=== PATIENT | female | born 2000 | race Caucasian/White ===

== ENCOUNTER 2021-05-11 03:30 | Emergency (ER) | payer MEDICAID, SELFPAY ==
[2021-05-11] VITALS (33 sets, daily range): BP systolic 91–133; BP diastolic 50–69; PULSE 68–114; RESP 14–31; TEMP 36.9–38.4; O2SAT 94–100; BMI 22.8
--- NOTE | 2021-05-11 03:32 | DI.CT.S_ITS ---
PROCEDURE: CT HEAD/BRAIN WO CON INDICATIONS: head injury TECHNIQUE: Noncontrast 4.5 mm thick angled axial sections acquired from the foramen magnum to the vertex, with coronal and sagittal reformats. For radiation dose reduction, the following was used: automated exposure control, adjustment of mA and/or kV according to patient size. COMPARISON: None. FINDINGS: Image quality: Excellent. CSF spaces: Basal cisterns are patent. No extra-axial fluid collections. Ventricles are normal in size and shape. Brain: No midline shift. No intracranial masses or hemorrhage. Moseley-white matter interface is normal. Skull and face: Calvarium and visualized facial bones are intact, without suspicious lesions. Sinuses: Visualized sinuses and mastoids are clear. IMPRESSION: Normal for age, source of current pain after trauma symptoms is not seen. Dictated by: Buster Penn M.D. on 05/11/2021 at 7:48 Approved by: Buster Penn M.D. on 05/11/2021 at 7:48
[2021-05-11 04:02] LABS: Add Manual Diff / Slide Review NO; Basophils Absolute Auto 0 /uL (0-100); Basophils Percent Auto 0.5 % (0-2); Eosinophils Absolute Auto 100 /uL (0-450); Eosinophils Percent Auto 0.9 % (2-4); Hematocrit 39.3 % (36-46); Hemoglobin 13.3 g/dL (12.0-16.0); Lymphocytes Absolute Auto 2000 /uL (1100-4500); Mean Corpuscular HGB Conc 33.9 % (30-36); Mean Corpuscular Volume 97.4 fL (80-100); Monocytes Absolute Auto 600 /uL (0-900); Monocytes Percent Auto 7.3 % (3-14); Neutrophils Absolute Auto 6000 /uL (1500-7000); Neutrophils Percent Auto 68.3 % (50-75); Platelet Count 260 X10^3/uL (150-400); Red Blood Cell Count 4.03 X10^6/uL (4.0-5.2); Red Cell Distribution Width 13.4 % (11.6-14.8); White Blood Cell Count 8.8 X10^3/uL (4.5-11.0)
[2021-05-11 04:11] LABS: UR Morphine/Opiate cutoff 300 Negative (Negative); Ur Creatinine 10 (Normal); Ur Specific Gravity 1.005 (Normal); Urine Amphetamines Negative (Negative); Urine Barbiturates Negative (Negative); Urine Benzodiazepines Negative (Negative); Urine Cocaine Negative (Negative); Urine MDMA Negative (Negative); Urine Methadone Negative (Negative); Urine Methamphetamines Negative (Negative); Urine Oxycodone Negative (Negative); Urine Phencyclidine Negative (Negative); Urine Tetrahydrocannabinol Negative (Negative); Urine Tricyclic Antidepressant Negative (Negative); Urine pH 4 (Normal)
[2021-05-11 04:13] LABS: Acetaminophen < 10 ug/mL (10-30); Alanine Aminotransferase 26 IU/L (<35); Albumin 4.7 g/dL (3.5-5.0); Albumin Globulin Ratio 1.5 (1.0-2.8); Alkaline Phosphatase 65 U/L (38-126); Aspartate Aminotransferase 48 IU/L (14-36); BUN Creatinine Ratio 11.5 (6-22); Bilirubin Total 0.4 mg/dL (0.2-1.3); Blood Urea Nitrogen 7 mg/dL (7-17); Calcium 9.5 mg/dL (8.4-10.2); Carbon Dioxide 17 mmol/L (22-32); Chloride 110 mmol/L (98-107); Estimated Glomerular Filt Rate > 60.0 mL/min (>60); Ethanol (ETOH) 182 mg/dL; Globulin 3.1 g/dL (1.7-4.1); Glucose 106 mg/dL (70-100); HEMOLYSIS < 15 (0-50); Potassium 3.2 mmol/L (3.4-5.1); Salicylate < 1.0 mg/dL (<20); Sodium 142 mmol/L (137-145); Total Protein 7.8 g/dL (6.3-8.2)
--- NOTE | 2021-05-11 04:33 | PC.NURSE ---
pt slamed head against mattress repeatedly
[2021-05-11 04:52] LABS: Bacteria Urine None Seen; RBC Urine None Seen (0-5/HPF); WBC Urine None Seen (0-5/HPF)
[2021-05-11 05:02] LABS: Appearance Urine UA CLEAR; Bilirubin Urine UA NEGATIVE (NEGATIVE); Glucose Urine UA NEGATIVE (Negative); Ketones Urine UA NEGATIVE (NEGATIVE); Leukocyte Esterase Urine UA NEGATIVE (NEGATIVE); Nitrite Urine UA NEGATIVE (Negative); Occult Blood Urine UA TRACE-LYSED (Negative); Protein Urine UA NEGATIVE (Negative); Specific Gravity Urine UA <=1.005 (1.000-1.035); Urobilinogen Urine UA 0.2 E.U./dL (0.2)
[2021-05-11 05:03] LABS: Color Urine UA Straw
[2021-05-11 05:06] LABS: Pregnancy Test Urine Positive (Negative)
[2021-05-11 05:11] LABS: Culture Indicated Urine Cult Not Indicated
--- NOTE | 2021-05-11 05:59 | ED_ITS ---
HPI - Alcohol <Daniel Chavira DO - Last Filed: 05/11/21 17:58> General Chief Complaint: Toxicology Problem Stated Complaint: Drunk/ S.I. Time Seen by Provider: 05/11/21 03:34 Source: patient and EMS Mode of arrival: EMS History of Present Illness HPI narrative: 20-year-old female daily smoker presents by EMS with police escort with a chief complaint of heavy alcohol intoxication and self-harm with suspected suicidal ideation. [place] had [place]riage in has been suicidal and depressed. She is reported to have consumed a significant amount of alcohol and was found hitting her head on a trampoline support structure or a fence. She wa s brought by EMS for evaluation and police filled out I TA paperwork. She contributes little to nothing in the history Related Data Previous Rx's Medication Instructions Recorded amoxicillin 875 mg-potassium 1 tab PO Q12H #20 tab 05/11/21 clavulanate 125 mg tablet (Augmentin) Allergies Allergy/AdvReac Type Severity Reaction Status Date / Time latex Allergy Verified 05/11/21 04:13 Review of Systems <Daniel Chavira DO - Last Filed: 05/11/21 17:58> Review of Systems ROS Unobtainable: Unobtainable due to mental status/LOC Patient History <DO Zach Rivas Last Filed: 05/11/21 17:58> Medical History (Updated 05/11/21 @ 14:18 by Jaime Underwood MD) Fever Missed with demise before 20 completed weeks of gestation Social History marital status: unmarried,single number of children: 0 Smoking Status: Current every day smoker Smoking Status: Current every day smoker tobacco type: vaping Alcohol type: beer and hard liquor Exam <Daniel Chavira DO - Last Filed: 05/11/21 17:58> Narrative Exam Narrative: GENERAL: [20] year old patient appears stated age. Well- developed patient, in mild distress. Slurring words, a ton did, guarding airway, controlling secretions HEAD: Atraumatic. Normocephalic. EYES: Pupils equal round and reactive. Extraocular motions intact. No scleral icterus. No injection or drainage. ENT: Nose without bleeding, purulent drainage. Throat without erythema, tonsillar hypertrophy or exudate. Airway patent. NECK: Trachea midline. Non tender CARDIOVASCULAR: Regular rate and rhythm without murmurs, gallops, or rubs. RESPIRATORY: Clear to auscultation. Breath sounds equal bilaterally. No wheezes, rales, or rhonchi. GASTROINTESTINAL: Abdomen soft, non-tender, nondistended. EXTREMITIES: No edema or joint tenderness. BACK: Nontender without deformity or crepitance. No flank tenderness. NEURO: Moving all 4 extremities s purposely SKIN: No rash or erythema of visible areas Initial Vital Signs Initial Vital Signs: Vital Signs Temperature 98.5 F 05/11/21 03:30 Pulse Rate 103 H 05/11/21 03:30 Respiratory Rate 20 05/11/21 03:30 Blood Pressure 132/69 05/11/21 03:30 Pulse Oximetry 99 05/11/21 03:30 <Oriana Cesar DO - Last Filed: 05/11/21 15:41> Initial Vital Signs Initial Vital Signs: Vital Signs Temperature 98.5 F 05/11/21 03:30 Pulse Rate 103 H 05/11/21 03:30 Respiratory Rate 20 05/11/21 03:30 Blood Pressure 132/69 05/11/21 03:30 Pulse Oximetry 99 05/11/21 03:30 Course <Daniel Chvaira DO - Last Filed: 05/11/21 17:58> Orders Ordered: ED Orders 05/11/21 09:25 US OB <= 14 weeks fetus Stat 05/11/21 13:13 Blood Culture Stat 05/11/21 13:14 Lactate (Lactic Acid) Stat Procalcitonin Stat 05/11/21 13:18 COVID19 -Nasal swab/Pre-Proc Stat Discontinued Medications Acetaminophen (Acetaminophen 325 Mg Tablet) 975 mg PO NOW ONE Stop: 05/11/21 13:01 Last Admin: 05/11/21 13:25 Dose: 975 mg Documented by: TYRA Sodium Chloride (Normal Saline 0.9%) 1,000 mls @ 150 mls/hr IV CONT JAYE Last Admin: 05/11/21 08:41 Dose: Not Given Documented by: TYRA Ampicillin Sodium 2,000 mg/ (Sodium Chloride) 100 mls @ 200 mls/hr IV NOW ONE Stop: 05/11/21 12:58 Last Infusion: 05/11/21 14:00 Dose: 0 mls/hr Documented by: Admin: 05/11/21 13:25 Dose: 200 mls/hr Documented by: TYRA Gentamicin Sulfate 300 mg/ (Sodium Chloride) 107.5 mls @ 107.5 mls/hr IV NOW ONE Stop: 05/11/21 12:58 Last Infusion: 05/11/21 15:05 Dose: 0 mls/hr Documented by: Admin: 05/11/21 14:02 Dose: 107.5 mls/hr Documented by: TYRA Vital Signs Vital signs: Vital Signs - 8 hr 05/11/21 10:00 05/11/21 10:30 05/11/21 11:00 Temperature Pulse Rate 83 82 77 Respiratory Rate 19 18 18 Blood Pressure 108/57 L 110/58 L 102/56 L Pulse Oximetry 97 97 94 05/11/21 11:30 05/11/21 11:52 05/11/21 12:00 Temperature 100.2 F H Pulse Rate 98 H 114 H Respiratory Rate 29 H 26 H Blood Pressure 99/55 L 102/57 L Pulse Oximetry 96 98 05/11/21 12:26 05/11/21 12:27 05/11/21 12:30 Temperature 101.1 F H Pulse Rate 84 81 82 Respiratory Rate 14 15 16 Blood Pressure 104/61 104/61 Pulse Oximetry 98 98 98 05/11/21 13:00 05/11/21 13:30 05/11/21 14:00 Temperature Pulse Rate 87 92 H 91 H Respiratory Rate 17 21 24 Blood Pressure Pulse Oximetry 98 98 99 05/11/21 14:07 05/11/21 14:30 05/11/21 15:00 Temperature Pulse Rate 86 82 82 Respiratory Rate 22 30 H 22 Blood Pressure 112/59 L 113/55 L Pulse Oximetry 99 97 97 05/11/21 15:01 05/11/21 15:40 Temperature 99.6 F Pulse Rate 80 Respiratory Rate 24 Blood Pressure 133/61 Pulse Oximetry 98 <Oriana Cesar DO - Last Filed: 05/11/21 15:41> Orders Ordered: ED Orders 05/11/21 09:25 US OB <= 14 weeks fetus Stat 05/11/21 13:13 Blood Culture Stat 05/11/21 13:14 Lactate (Lactic Acid) Stat Procalcitonin Stat 05/11/21 13:18 COVID19 -Nasal swab/Pre-Proc Stat Discontinued Medications Acetaminophen (Acetaminophen 325 Mg Tablet) 975 mg PO NOW ONE Stop: 05/11/21 13:01 Last Admin: 05/11/21 13:25 Dose: 975 mg Documented by: TYRA Sodium Chloride (Normal Saline 0.9%) 1,000 mls @ 150 mls/hr IV CONT JAYE Last Admin: 05/11/21 08:41 Dose: Not Given Documented by: TYRA Ampicillin Sodium 2,000 mg/ (Sodium Chloride) 100 mls @ 200 mls/hr IV NOW ONE Stop: 05/11/21 12:58 Last Infusion: 05/11/21 14:00 Dose: 0 mls/hr Documented by: Admin: 05/11/21 13:25 Dose: 200 mls/hr Documented by: TYRA Gentamicin Sulfate 300 mg/ (Sodium Chloride) 107.5 mls @ 107.5 mls/hr IV NOW ONE Stop: 05/11/21 12:58 Last Infusion: 05/11/21 15:05 Dose: 0 mls/hr Documented by: Admin: 05/11/21 14:02 Dose: 107.5 mls/hr Documented by: TYRA Vital Signs Vital signs: Vital Signs - 8 hr 05/11/21 10:00 05/11/21 10:30 05/11/21 11:00 Temperature Pulse Rate 83 82 77 Respiratory Rate 19 18 18 Blood Pressure 108/57 L 110/58 L 102/56 L Pulse Oximetry 97 97 94 05/11/21 11:30 05/11/21 11:52 05/11/21 12:00 Temperature 100.2 F H Pulse Rate 98 H 114 H Respiratory Rate 29 H 26 H Blood Pressure 99/55 L 102/57 L Pulse Oximetry 96 98 05/11/21 12:26 05/11/21 12:27 05/11/21 12:30 Temperature 101.1 F H Pulse Rate 84 81 82 Respiratory Rate 14 15 16 Blood Pressure 104/61 104/61 Pulse Oximetry 98 98 98 05/11/21 13:00 05/11/21 13:30 05/11/21 14:00 Temperature Pulse Rate 87 92 H 91 H Respiratory Rate 17 21 24 Blood Pressure Pulse Oximetry 98 98 99 05/11/21 14:07 05/11/21 14:30 05/11/21 15:00 Temperature Pulse Rate 86 82 82 Respiratory Rate 22 30 H 22 Blood Pressure 112/59 L 113/55 L Pulse Oximetry 99 97 97 05/11/21 15:01 05/11/21 15:40 Temperature 99.6 F Pulse Rate 80 Respiratory Rate 24 Blood Pressure 133/61 Pulse Oximetry 98 MDM - Alcohol <Daniel Chavira, DO - Last Filed: 05/11/21 17:58> Lab Data Result diagrams: 05/11/21 03:55 05/11/21 03:55 Labs: Lab Results 05/11/21 05/11/21 05/11/21 Range/Units 03:45 03:45 03:45 WBC (4.5-11.0) X10^3/uL RBC (4.0-5.2) X10^6/uL Hgb (12.0-16.0) g/dL Hct (36-46) % MCV (80-100) fL MCH (26-34) PG MCHC (30-36) % RDW (11.6-14.8) % Plt Count (150-400) X10^3/uL Neut % (Auto) (50-75) % Lymph % (Auto) (25-40) % [place] % (Auto) (3-14) % Eos % (Auto) (2-4) % Baso % (Auto) (0-2) % Neut # (Auto) (1782-9386) /uL Lymph # (Auto) (1516-5230) /uL [place] # (Auto) (0-900) /uL Eos # (Auto) (0-450) /uL Baso # (Auto) (0-100) /uL Sodium (137-145) mmol/L Potassium (3.4-5.1) mmol/L Chloride (98-107) mmol/L Carbon Dioxide (22-32) mmol/L BUN (7-17) mg/dL Creatinine (0.52-1.04) mg/dL Estimated GFR (>60) mL/min BUN/Creatinine Ratio (6-22) Glucose (70-100) mg/dL Lactate (0.7-2.1) mmol/L Calcium (8.4-10.2) mg/dL Total Bilirubin (0.2-1.3) mg/dL AST (14-36) IU/L ALT (<35) IU/L Alkaline Phosphatase (38-126) U/L Total Protein (6.3-8.2) g/dL Albumin (3.5-5.0) g/dL Globulin (1.7-4.1) g/dL Albumin/Globulin Ratio (1.0-2.8) Procalcitonin (<0.5) ng/mL HCG, Quant mIU/mL Urine Color Straw Urine Appearance Clear Urine pH 6.0 (4.5-8.0) Ur Specific Severance <=1.005 (1.000-1.035) Urine Protein Negative (Negative) Urine Glucose (UA) Negative (Negative) g/dL Urine Ketones Negative (NEGATIVE) Urine Occult Blood Trace-lysed (Negative) Urine Nitrate Negative (Negative) Urine Bilirubin Negative (NEGATIVE) Urine Urobilinogen 0.2 (0.2) E.U./dL Ur Leukocyte Esterase Negative (NEGATIVE) Urine RBC None seen (0-5/HPF) Urine WBC None seen (0-5/HPF) Urine Bacteria None seen (None) Ur Culture Indicated? Cult not indicated Urine Test Positive H (Negative) Salicylates (<20) mg/dL U Opiates 300ng/mL cut Negative (Negative) Ur Oxycodone Screen Negative (Negative) Urine Methadone Screen Negative (Negative) Acetaminophen (10-30) ug/mL Ur Barbiturates Screen Negative (Negative) U Tricyclic Antidepress Negative (Negative) Ur Phencyclidine Scrn Negative (Negative) Ur Amphetamines Screen Negative (Negative) U Methamphetamines Scrn Negative (Negative) Ur MDMA Scrn (Ecstasy) Negative (Negative) U Benzodiazepines Scrn Negative (Negative) Urine Cocaine Screen Negative (Negative) U Marijuana (THC) Screen Negative (Negative) Ethyl Alcohol ( - 10) mg/dL Ur Chlamydia DNA (PCR) SARS-CoV-2 (PCR) (Negative) N gonorrhoeae DNA (PCR) Blood Type 05/11/21 05/11/21 05/11/21 Range/Units 03:45 03:55 03:55 WBC 8.8 (4.5-11.0) X10^3/uL RBC 4.03 (4.0-5.2) X10^6/uL Hgb 13.3 (12.0-16.0) g/dL Hct 39.3 (36-46) % MCV 97.4 (80-100) fL MCH 33.0 (26-34) PG MCHC 33.9 (30-36) % RDW 13.4 (11.6-14.8) % Plt Count 260 (150-400) X10^3/uL Neut % (Auto) 68.3 (50-75) % Lymph % (Auto) 23.0 L (25-40) % [place] % (Auto) 7.3 (3-14) % Eos % (Auto) 0.9 L (2-4) % Baso % (Auto) 0.5 (0-2) % Neut # (Auto) 6000 (5735-7177) /uL Lymph # (Auto) 2000 (7632-8874) /uL [place] # (Auto) 600 (0-900) /uL Eos # (Auto) 100 (0-450) /uL Baso # (Auto) 0 (0-100) /uL Sodium 142 (137-145) mmol/L Potassium 3.2 L (3.4-5.1) mmol/L Chloride 110 H (98-107) mmol/L Carbon Dioxide 17 L (22-32) mmol/L BUN 7 (7-17) mg/dL Creatinine 0.61 (0.52-1.04) mg/dL Estimated GFR > 60.0 (>60) mL/min BUN/Creatinine Ratio 11.5 (6-22) Glucose 106 H (70-100) mg/dL Lactate (0.7-2.1) mmol/L Calcium 9.5 (8.4-10.2) mg/dL Total Bilirubin 0.4 (0.2-1.3) mg/dL AST 48 H (14-36) IU/L ALT 26 (<35) IU/L Alkaline Phosphatase 65 (38-126) U/L Total Protein 7.8 (6.3-8.2) g/dL Albumin 4.7 (3.5-5.0) g/dL Globulin 3.1 (1.7-4.1) g/dL Albumin/Globulin Ratio 1.5 (1.0-2.8) Procalcitonin (<0.5) ng/mL HCG, Quant mIU/mL Urine Color Urine Appearance Urine pH (4.5-8.0) Ur Specific Severance (1.000-1.035) Urine Protein (Negative) Urine Glucose (UA) (Negative) g/dL Urine Ketones (NEGATIVE) Urine Occult Blood (Negative) Urine Nitrate (Negative) Urine Bilirubin (NEGATIVE) Urine Urobilinogen (0.2) E.U./dL Ur Leukocyte Esterase (NEGATIVE) Urine RBC (0-5/HPF) Urine WBC (0-5/HPF) Urine Bacteria (None) Ur Culture Indicated? Urine Test (Negative) Salicylates < 1.0 (<20) mg/dL U Opiates 300ng/mL cut (Negative) Ur Oxycodone Screen (Negative) Urine Methadone Screen (Negative) Acetaminophen < 10 L (10-30) ug/mL Ur Barbiturates Screen (Negative) U Tricyclic Antidepress (Negative) Ur Phencyclidine Scrn (Negative) Ur Amphetamines Screen (Negative) U Methamphetamines Scrn (Negative) Ur MDMA Scrn (Ecstasy) (Negative) U Benzodiazepines Scrn (Negative) Urine Cocaine Screen (Negative) U Marijuana (THC) Screen (Negative) Ethyl Alcohol 182 H ( - 10) mg/dL Ur Chlamydia DNA (PCR) Not detected SARS-CoV-2 (PCR) (Negative) N gonorrhoeae DNA (PCR) Not detected Blood Type 05/11/21 05/11/21 05/11/21 Range/Units 03:55 03:55 13:14 WBC (4.5-11.0) X10^3/uL RBC (4.0-5.2) X10^6/uL Hgb (12.0-16.0) g/dL Hct (36-46) % MCV (80-100) fL MCH (26-34) PG MCHC (30-36) % RDW (11.6-14.8) % Plt Count (150-400) X10^3/uL Neut % (Auto) (50-75) % Lymph % (Auto) (25-40) % [place] % (Auto) (3-14) % Eos % (Auto) (2-4) % Baso % (Auto) (0-2) % Neut # (Auto) (7878-4455) /uL Lymph # (Auto) (1139-5882) /uL [place] # (Auto) (0-900) /uL Eos # (Auto) (0-450) /uL Baso # (Auto) (0-100) /uL Sodium (137-145) mmol/L Potassium (3.4-5.1) mmol/L Chloride (98-107) mmol/L Carbon Dioxide (22-32) mmol/L BUN (7-17) mg/dL Creatinine (0.52-1.04) mg/dL Estimated GFR (>60) mL/min BUN/Creatinine Ratio (6-22) Glucose (70-100) mg/dL Lactate 1.1 (0.7-2.1) mmol/L Calcium (8.4-10.2) mg/dL Total Bilirubin (0.2-1.3) mg/dL AST (14-36) IU/L ALT (<35) IU/L Alkaline Phosphatase (38-126) U/L Total Protein (6.3-8.2) g/dL Albumin (3.5-5.0) g/dL Globulin (1.7-4.1) g/dL Albumin/Globulin Ratio (1.0-2.8) Procalcitonin (<0.5) ng/mL HCG, Quant 353.5 mIU/mL Urine Color Urine Appearance Urine pH (4.5-8.0) Ur Specific Severance (1.000-1.035) Urine Protein (Negative) Urine Glucose (UA) (Negative) g/dL Urine Ketones (NEGATIVE) Urine Occult Blood (Negative) Urine Nitrate (Negative) Urine Bilirubin (NEGATIVE) Urine Urobilinogen (0.2) E.U./dL Ur Leukocyte Esterase (NEGATIVE) Urine RBC (0-5/HPF) Urine WBC (0-5/HPF) Urine Bacteria (None) Ur Culture Indicated? Urine Test (Negative) Salicylates (<20) mg/dL U Opiates 300ng/mL cut (Negative) Ur Oxycodone Screen (Negative) Urine Methadone Screen (Negative) Acetaminophen (10-30) ug/mL Ur Barbiturates Screen (Negative) U Tricyclic Antidepress (Negative) Ur Phencyclidine Scrn (Negative) Ur Amphetamines Screen (Negative) U Methamphetamines Scrn (Negative) Ur MDMA Scrn (Ecstasy) (Negative) U Benzodiazepines Scrn (Negative) Urine Cocaine Screen (Negative) U Marijuana (THC) Screen (Negative) Ethyl Alcohol ( - 10) mg/dL Ur Chlamydia DNA (PCR) SARS-CoV-2 (PCR) (Negative) N gonorrhoeae DNA (PCR) Blood Type O Positive 05/11/21 05/11/21 Range/Units 13:14 13:18 WBC (4.5-11.0) X10^3/uL RBC (4.0-5.2) X10^6/uL Hgb (12.0-16.0) g/dL Hct (36-46) % MCV (80-100) fL MCH (26-34) PG MCHC (30-36) % RDW (11.6-14.8) % Plt Count (150-400) X10^3/uL Neut % (Auto) (50-75) % Lymph % (Auto) (25-40) % [place] % (Auto) (3-14) % Eos % (Auto) (2-4) % Baso % (Auto) (0-2) % Neut # (Auto) (7956-6036) /uL Lymph # (Auto) (3185-7924) /uL [place] # (Auto) (0-900) /uL Eos # (Auto) (0-450) /uL Baso # (Auto) (0-100) /uL Sodium (137-145) mmol/L Potassium (3.4-5.1) mmol/L Chloride (98-107) mmol/L Carbon Dioxide (22-32) mmol/L BUN (7-17) mg/dL Creatinine (0.52-1.04) mg/dL Estimated GFR (>60) mL/min BUN/Creatinine Ratio (6-22) Glucose (70-100) mg/dL Lactate (0.7-2.1) mmol/L Calcium (8.4-10.2) mg/dL Total Bilirubin (0.2-1.3) mg/dL AST (14-36) IU/L ALT (<35) IU/L Alkaline Phosphatase (38-126) U/L Total Protein (6.3-8.2) g/dL Albumin (3.5-5.0) g/dL Globulin (1.7-4.1) g/dL Albumin/Globulin Ratio (1.0-2.8) Procalcitonin 0.04 (<0.5) ng/mL HCG, Quant mIU/mL Urine Color Urine Appearance Urine pH (4.5-8.0) Ur Specific Severance (1.000-1.035) Urine Protein (Negative) Urine Glucose (UA) (Negative) g/dL Urine Ketones (NEGATIVE) Urine Occult Blood (Negative) Urine Nitrate (Negative) Urine Bilirubin (NEGATIVE) Urine Urobilinogen (0.2) E.U./dL Ur Leukocyte Esterase (NEGATIVE) Urine RBC (0-5/HPF) Urine WBC (0-5/HPF) Urine Bacteria (None) Ur Culture Indicated? Urine Test (Negative) Salicylates (<20) mg/dL U Opiates 300ng/mL cut (Negative) Ur Oxycodone Screen (Negative) Urine Methadone Screen (Negative) Acetaminophen (10-30) ug/mL Ur Barbiturates Screen (Negative) U Tricyclic Antidepress (Negative) Ur Phencyclidine Scrn (Negative) Ur Amphetamines Screen (Negative) U Methamphetamines Scrn (Negative) Ur MDMA Scrn (Ecstasy) (Negative) U Benzodiazepines Scrn (Negative) Urine Cocaine Screen (Negative) U Marijuana (THC) Screen (Negative) Ethyl Alcohol ( - 10) mg/dL Ur Chlamydia DNA (PCR) SARS-CoV-2 (PCR) Negative (Negative) N gonorrhoeae DNA (PCR) Blood Type <Oriana Cesar, DO - Last Filed: 05/11/21 15:41> Lab Data Labs: Lab Results 05/11/21 05/11/21 05/11/21 Range/Units 03:45 03:45 03:45 WBC (4.5-11.0) X10^3/uL RBC (4.0-5.2) X10^6/uL Hgb (12.0-16.0) g/dL Hct (36-46) % MCV (80-100) fL MCH (26-34) PG MCHC (30-36) % RDW (11.6-14.8) % Plt Count (150-400) X10^3/uL Neut % (Auto) (50-75) % Lymph % (Auto) (25-40) % [place] % (Auto) (3-14) % Eos % (Auto) (2-4) % Baso % (Auto) (0-2) % Neut # (Auto) (0724-4969) /uL Lymph # (Auto) (7729-0910) /uL [place] # (Auto) (0-900) /uL Eos # (Auto) (0-450) /uL Baso # (Auto) (0-100) /uL Sodium (137-145) mmol/L Potassium (3.4-5.1) mmol/L Chloride (98-107) mmol/L Carbon Dioxide (22-32) mmol/L BUN (7-17) mg/dL Creatinine (0.52-1.04) mg/dL Estimated GFR (>60) mL/min BUN/Creatinine Ratio (6-22) Glucose (70-100) mg/dL Lactate (0.7-2.1) mmol/L Calcium (8.4-10.2) mg/dL Total Bilirubin (0.2-1.3) mg/dL AST (14-36) IU/L ALT (<35) IU/L Alkaline Phosphatase (38-126) U/L Total Protein (6.3-8.2) g/dL Albumin (3.5-5.0) g/dL Globulin (1.7-4.1) g/dL Albumin/Globulin Ratio (1.0-2.8) Procalcitonin (<0.5) ng/mL HCG, Quant mIU/mL Urine Color Straw Urine Appearance Clear Urine pH 6.0 (4.5-8.0) Ur Specific Severance <=1.005 (1.000-1.035) Urine Protein Negative (Negative) Urine Glucose (UA) Negative (Negative) g/dL Urine Ketones Negative (NEGATIVE) Urine Occult Blood Trace-lysed (Negative) Urine Nitrate Negative (Negative) Urine Bilirubin Negative (NEGATIVE) Urine Urobilinogen 0.2 (0.2) E.U./dL Ur Leukocyte Esterase Negative (NEGATIVE) Urine RBC None seen (0-5/HPF) Urine WBC None seen (0-5/HPF) Urine Bacteria None seen (None) Ur Culture Indicated? Cult not indicated Urine Test Positive H (Negative) Salicylates (<20) mg/dL U Opiates 300ng/mL cut Negative (Negative) Ur Oxycodone Screen Negative (Negative) Urine Methadone Screen Negative (Negative) Acetaminophen (10-30) ug/mL Ur Barbiturates Screen Negative (Negative) U Tricyclic Antidepress Negative (Negative) Ur Phencyclidine Scrn Negative (Negative) Ur Amphetamines Screen Negative (Negative) U Methamphetamines Scrn Negative (Negative) Ur MDMA Scrn (Ecstasy) Negative (Negative) U Benzodiazepines Scrn Negative (Negative) Urine Cocaine Screen Negative (Negative) U Marijuana (THC) Screen Negative (Negative) Ethyl Alcohol ( - 10) mg/dL Ur Chlamydia DNA (PCR) SARS-CoV-2 (PCR) (Negative) N gonorrhoeae DNA (PCR) Blood Type 05/11/21 05/11/21 05/11/21 Range/Units 03:45 03:55 03:55 WBC 8.8 (4.5-11.0) X10^3/uL RBC 4.03 (4.0-5.2) X10^6/uL Hgb 13.3 (12.0-16.0) g/dL Hct 39.3 (36-46) % MCV 97.4 (80-100) fL MCH 33.0 (26-34) PG MCHC 33.9 (30-36) % RDW 13.4 (11.6-14.8) % Plt Count 260 (150-400) X10^3/uL Neut % (Auto) 68.3 (50-75) % Lymph % (Auto) 23.0 L (25-40) % [place] % (Auto) 7.3 (3-14) % Eos % (Auto) 0.9 L (2-4) % Baso % (Auto) 0.5 (0-2) % Neut # (Auto) 6000 (4630-5472) /uL Lymph # (Auto) 2000 (3889-1905) /uL [place] # (Auto) 600 (0-900) /uL Eos # (Auto) 100 (0-450) /uL Baso # (Auto) 0 (0-100) /uL Sodium 142 (137-145) mmol/L Potassium 3.2 L (3.4-5.1) mmol/L Chloride 110 H (98-107) mmol/L Carbon Dioxide 17 L (22-32) mmol/L BUN 7 (7-17) mg/dL Creatinine 0.61 (0.52-1.04) mg/dL Estimated GFR > 60.0 (>60) mL/min BUN/Creatinine Ratio 11.5 (6-22) Glucose 106 H (70-100) mg/dL Lactate (0.7-2.1) mmol/L Calcium 9.5 (8.4-10.2) mg/dL Total Bilirubin 0.4 (0.2-1.3) mg/dL AST 48 H (14-36) IU/L ALT 26 (<35) IU/L Alkaline Phosphatase 65 (38-126) U/L Total Protein 7.8 (6.3-8.2) g/dL Albumin 4.7 (3.5-5.0) g/dL Globulin 3.1 (1.7-4.1) g/dL Albumin/Globulin Ratio 1.5 (1.0-2.8) Procalcitonin (<0.5) ng/mL HCG, Quant mIU/mL Urine Color Urine Appearance Urine pH (4.5-8.0) Ur Specific Severance (1.000-1.035) Urine Protein (Negative) Urine Glucose (UA) (Negative) g/dL Urine Ketones (NEGATIVE) Urine Occult Blood (Negative) Urine Nitrate (Negative) Urine Bilirubin (NEGATIVE) Urine Urobilinogen (0.2) E.U./dL Ur Leukocyte Esterase (NEGATIVE) Urine RBC (0-5/HPF) Urine WBC (0-5/HPF) Urine Bacteria (None) Ur Culture Indicated? Urine Test (Negative) Salicylates < 1.0 (<20) mg/dL U Opiates 300ng/mL cut (Negative) Ur Oxycodone Screen (Negative) Urine Methadone Screen (Negative) Acetaminophen < 10 L (10-30) ug/mL Ur Barbiturates Screen (Negative) U Tricyclic Antidepress (Negative) Ur Phencyclidine Scrn (Negative) Ur Amphetamines Screen (Negative) U Methamphetamines Scrn (Negative) Ur MDMA Scrn (Ecstasy) (Negative) U Benzodiazepines Scrn (Negative) Urine Cocaine Screen (Negative) U Marijuana (THC) Screen (Negative) Ethyl Alcohol 182 H ( - 10) mg/dL Ur Chlamydia DNA (PCR) Not detected SARS-CoV-2 (PCR) (Negative) N gonorrhoeae DNA (PCR) Not detected Blood Type 05/11/21 05/11/21 05/11/21 Range/Units 03:55 03:55 13:14 WBC (4.5-11.0) X10^3/uL RBC (4.0-5.2) X10^6/uL Hgb (12.0-16.0) g/dL Hct (36-46) % MCV (80-100) fL MCH (26-34) PG MCHC (30-36) % RDW (11.6-14.8) % Plt Count (150-400) X10^3/uL Neut % (Auto) (50-75) % Lymph % (Auto) (25-40) % [place] % (Auto) (3-14) % Eos % (Auto) (2-4) % Baso % (Auto) (0-2) % Neut # (Auto) (3117-8951) /uL Lymph # (Auto) (9213-2299) /uL [place] # (Auto) (0-900) /uL Eos # (Auto) (0-450) /uL Baso # (Auto) (0-100) /uL Sodium (137-145) mmol/L Potassium (3.4-5.1) mmol/L Chloride (98-107) mmol/L Carbon Dioxide (22-32) mmol/L BUN (7-17) mg/dL Creatinine (0.52-1.04) mg/dL Estimated GFR (>60) mL/min BUN/Creatinine Ratio (6-22) Glucose (70-100) mg/dL Lactate 1.1 (0.7-2.1) mmol/L Calcium (8.4-10.2) mg/dL Total Bilirubin (0.2-1.3) mg/dL AST (14-36) IU/L ALT (<35) IU/L Alkaline Phosphatase (38-126) U/L Total Protein (6.3-8.2) g/dL Albumin (3.5-5.0) g/dL Globulin (1.7-4.1) g/dL Albumin/Globulin Ratio (1.0-2.8) Procalcitonin (<0.5) ng/mL HCG, Quant 353.5 mIU/mL Urine Color Urine Appearance Urine pH (4.5-8.0) Ur Specific Severance (1.000-1.035) Urine Protein (Negative) Urine Glucose (UA) (Negative) g/dL Urine Ketones (NEGATIVE) Urine Occult Blood (Negative) Urine Nitrate (Negative) Urine Bilirubin (NEGATIVE) Urine Urobilinogen (0.2) E.U./dL Ur Leukocyte Esterase (NEGATIVE) Urine RBC (0-5/HPF) Urine WBC (0-5/HPF) Urine Bacteria (None) Ur Culture Indicated? Urine Test (Negative) Salicylates (<20) mg/dL U Opiates 300ng/mL cut (Negative) Ur Oxycodone Screen (Negative) Urine Methadone Screen (Negative) Acetaminophen (10-30) ug/mL Ur Barbiturates Screen (Negative) U Tricyclic Antidepress (Negative) Ur Phencyclidine Scrn (Negative) Ur Amphetamines Screen (Negative) U Methamphetamines Scrn (Negative) Ur MDMA Scrn (Ecstasy) (Negative) U Benzodiazepines Scrn (Negative) Urine Cocaine Screen (Negative) U Marijuana (THC) Screen (Negative) Ethyl Alcohol ( - 10) mg/dL Ur Chlamydia DNA (PCR) SARS-CoV-2 (PCR) (Negative) N gonorrhoeae DNA (PCR) Blood Type O Positive 05/11/21 05/11/21 Range/Units 13:14 13:18 WBC (4.5-11.0) X10^3/uL RBC (4.0-5.2) X10^6/uL Hgb (12.0-16.0) g/dL Hct (36-46) % MCV (80-100) fL MCH (26-34) PG MCHC (30-36) % RDW (11.6-14.8) % Plt Count (150-400) X10^3/uL Neut % (Auto) (50-75) % Lymph % (Auto) (25-40) % [place] % (Auto) (3-14) % Eos % (Auto) (2-4) % Baso % (Auto) (0-2) % Neut # (Auto) (0153-4656) /uL Lymph # (Auto) (9698-2204) /uL [place] # (Auto) (0-900) /uL Eos # (Auto) (0-450) /uL Baso # (Auto) (0-100) /uL Sodium (137-145) mmol/L Potassium (3.4-5.1) mmol/L Chloride (98-107) mmol/L Carbon Dioxide (22-32) mmol/L BUN (7-17) mg/dL Creatinine (0.52-1.04) mg/dL Estimated GFR (>60) mL/min BUN/Creatinine Ratio (6-22) Glucose (70-100) mg/dL Lactate (0.7-2.1) mmol/L Calcium (8.4-10.2) mg/dL Total Bilirubin (0.2-1.3) mg/dL AST (14-36) IU/L ALT (<35) IU/L Alkaline Phosphatase (38-126) U/L Total Protein (6.3-8.2) g/dL Albumin (3.5-5.0) g/dL Globulin (1.7-4.1) g/dL Albumin/Globulin Ratio (1.0-2.8) Procalcitonin 0.04 (<0.5) ng/mL HCG, Quant mIU/mL Urine Color Urine Appearance Urine pH (4.5-8.0) Ur Specific Severance (1.000-1.035) Urine Protein (Negative) Urine Glucose (UA) (Negative) g/dL Urine Ketones (NEGATIVE) Urine Occult Blood (Negative) Urine Nitrate (Negative) Urine Bilirubin (NEGATIVE) Urine Urobilinogen (0.2) E.U./dL Ur Leukocyte Esterase (NEGATIVE) Urine RBC (0-5/HPF) Urine WBC (0-5/HPF) Urine Bacteria (None) Ur Culture Indicated? Urine Test (Negative) Salicylates (<20) mg/dL U Opiates 300ng/mL cut (Negative) Ur Oxycodone Screen (Negative) Urine Methadone Screen (Negative) Acetaminophen (10-30) ug/mL Ur Barbiturates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
--- NOTE | 2021-05-11 07:10 | PC.NURSE ---
Patient starting to wake up
--- NOTE | 2021-05-11 07:21 | PC.NURSE ---
CT arrived to take patient for scan. Escorted with patient to ensure safety. Patient did well and followed all instructions. Returned to room without incident.
[2021-05-11 07:59] LABS: HCG Quantitative /Beta subunit 353.5 mIU/mL
--- NOTE | 2021-05-11 08:34 | PC.NURSE ---
Patient is finishing up eating breakfast
--- NOTE | 2021-05-11 08:46 | PC.NURSE ---
Patient on the phone with her mother
--- NOTE | 2021-05-11 09:01 | PC.NURSE ---
Patient still on the phone with mother
--- NOTE | 2021-05-11 09:17 | PC.NURSE ---
Patient is still on the phone with her mother
--- NOTE | 2021-05-11 09:19 | PC.NURSE ---
Doctor is in with patient
--- NOTE | 2021-05-11 09:25 | DI.US.S_ITS ---
PROCEDURE: US OB <= 14 WEEKS FETUS INDICATIONS: INCOMPLETE MISCARRIAGE OUTSIDE/PRIOR DATING DATA: Last menstrual period (LMP): 01/09/2021. LMP-based estimated date of delivery (HERMINIA): 10/16/2021. First dating scan (date and location): 05/11/2021, [facility]. Estimated date of delivery (HERMINIA) from first dating scan: 12/05/2021. TECHNIQUE: Real-time scanning was performed of the fetus and maternal pelvic organs, with image documentation. Endovaginal scanning was also performed to better visualize the fetus and maternal ovaries. COMPARISON: None. FINDINGS: Embryo: The crown-rump length is 3.3 cm, which corresponds to an estimated gestational age of 10 weeks 2 days. No yolk sac is seen. Heart rate: There is no cardiac activity, despite multiple attempts. Measurement variability in dating: +/- 4 weeks by LMP, +/- 7 days by mean sac diameter (use before 6 weeks gestation if crown-rump length not able to be measured), +/- 5 days by crown-rump length (up to 8 weeks 6 days gestation), +/- 7 days by crown-rump length (up to 13 weeks 6 days gestation). Maternal organs: Ovaries are unremarkable. The uterus is prominent and heterogeneous, measuring 11.7 x 9.9 x 8.3 cm. IMPRESSION: demise, with no cardiac activity and a greater than 1 month discrepancy between the estimated gestational age based upon these images and the estimated gestational age based upon the given date of the last menstrual period. Dictated by: Connor Winston M.D. on 05/11/2021 at 12:03 Approved by: Connor Winston M.D. on 05/11/2021 at 12:05
--- NOTE | 2021-05-11 09:26 | PC.NURSE ---
Doctor has left the room Patient is on the phone
--- NOTE | 2021-05-11 09:50 | PC.NURSE ---
Patient ate half of Banana and a bite of breakfast sandwich, 350mL of water
--- NOTE | 2021-05-11 11:24 | PC.NURSE ---
Patient is sleeping
--- NOTE | 2021-05-11 11:32 | PC.NURSE ---
Patient is awake
--- NOTE | 2021-05-11 11:52 | PC.NURSE ---
US is in with patient
--- NOTE | 2021-05-11 12:06 | PC.NURSE ---
Patient up to the Bathroom to void, US still in with patient
--- NOTE | 2021-05-11 12:16 | PC.NURSE ---
US still in with patient
--- NOTE | 2021-05-11 12:45 | PC.NURSE ---
Patient is still eating lunch
--- NOTE | 2021-05-11 13:01 | PC.NURSE ---
Patient finished eating lunch, Doctor spoke with patient
[2021-05-11] MEDS: AMPICILLIN 2,000 MG in SODIUM CHLORIDE 0.9% 100 ML 200 ML IV (13:25)
[2021-05-11] MEDS: ACETAMINOPHEN 325 MG TABLET 975 MG PO (13:25)
--- NOTE | 2021-05-11 13:35 | PC.NURSE ---
Doctor(OIL EXPERT) in with the patient
[2021-05-11 13:41] LABS: COVID19 -Nasal RAPID Negative (Negative)
[2021-05-11 13:43] LABS: Lactate (Lactic Acid) 1.1 mmol/L (0.7-2.1)
--- NOTE | 2021-05-11 13:46 | PC.NURSE ---
DYE BLENDER Doctor done, BULL FLOAT FINISHER is in with patient now
--- NOTE | 2021-05-11 13:59 | P.CONS_ITS ---
History of Present Illness Consult details Date Patient Seen: 05/11/21 Time Patient Seen: 13:35 Chief complaint: Drunk/ S.I. Reason for consult: Missed , Fever Requesting provider: Oriana Cesar Narrative: 20-year-old female daily smoker presents by EMS with police escort with a chief complaint of heavy alcohol intoxication and self-harm with suspected suicidal ideation. [place] recently had a miscarriage in has been suicidal and depre ssed. She is reported to have consumed a significant amount of alcohol and was found hitting her head on a trampoline support structure or a fence. She was brought by EMS for evaluation and police filled out I TA paperwork. She initially contributed little to nothing in the history. Upon further questioning once sober, the patient states that her LMP was 01/09/2021 and that she is with her current EGA of 16 weeks 6 days gestation based on a first- trimester ultrasound. She further states however that approximately 4 weeks ago she had an ultrasound which showed demise and she has not had any evacuation of this missed . She denies any bleeding, cramping, or leakage of fluid per vagina. She also denies any increasing pelvic or abdominal pain but her temperature orally is 101.0?. BT is pending at the time of this note. Pelvic ultrasound today shows: FINDINGS: Embryo: The crown-rump length is 3.3 cm, which corresponds to an estimated gestational age of 10 weeks 2 days. No yolk sac is seen. Heart rate: There is no cardiac activity, despite multiple attempts. Measurement variability in dating: +/- 4 weeks by LMP, +/- 7 days by mean sac diameter (use before 6 weeks gestation if crown-rump length not able to be measured), +/- 5 days by crown-rump length (up to 8 weeks 6 days gestation), +/- 7 days by crown-rump length (up to 13 weeks 6 days gestation). Maternal organs: Ovaries are unremarkable. The uterus is prominent and heterogeneous, measuring 11.7 x 9.9 x 8.3 cm. IMPRESSION: demise, with no cardiac activity and a greater than 1 month discrepancy between the estimated gestational age based upon these images and the estimated gestational age based upon the given date of the last menstrual period. Meds Home Medications and Allergies Allergies Allergy/AdvReac Type Severity Reaction Status Date / Time latex Allergy Verified 05/11/21 04:13 Review of Systems Review of Systems ROS: Yes All systems reviewed with the patient and are negative except as otherwise documented Exam Vital Signs (past 8 hours): - 05/11/21 08:15 05/11/21 11:52 05/11/21 12:26 Temperature 100.0 F H 100.2 F H 101.1 F H Pulse Rate 81 84 Respiratory Rate 16 14 Blood Pressure 103/57 L 104/61 Pulse Oximetry 99 98 Oxygen Delivery Method Room Air Const General: cooperative Nutritional Appearance: average body habitus Orientation: oriented x3 HENMT Head: normal to inspection Ears: hearing grossly normal bilaterally Face and sinus: face symmetric Eyes Conjunctivae: conjunctivae normal Sclera: sclerae normal Neck Neck: normal visual inspection Resp Effort & Inspection: normal respiratory effort, able to speak in complete sentences and other Auscultation: other (Declined) Cardio Rhythm: other (Exam declined) GI Inspection: other (Exam declined) General: other (Exam declined) Objective Labs Result Diagrams: 05/11/21 03:55 05/11/21 03:55 Labs: Laboratory Results - last 24 hr 05/11/21 05/11/21 05/11/21 03:45 03:45 03:45 WBC RBC Hgb Hct MCV MCH MCHC RDW Plt Count Neut % (Auto) Lymph % (Auto) [place] % (Auto) Eos % (Auto) Baso % (Auto) Neut # (Auto) Lymph # (Auto) [place] # (Auto) Eos # (Auto) Baso # (Auto) Sodium Potassium Chloride Carbon Dioxide BUN Creatinine Estimated GFR BUN/Creatinine Ratio Glucose Lactate Calcium Total Bilirubin AST ALT Alkaline Phosphatase Total Protein Albumin Globulin Albumin/Globulin Ratio HCG, Quant Urine Color Straw Urine Appearance Clear Urine pH 6.0 Ur Specific [place] <=1.005 Urine Protein Negative Urine Glucose (UA) Negative Urine Ketones Negative Urine Occult Blood Trace-lysed Urine Nitrate Negative Urine Bilirubin Negative Urine Urobilinogen 0.2 Ur Leukocyte Esterase Negative Urine RBC None seen Urine WBC None seen Urine Bacteria None seen Ur Culture Indicated? Cult not indicated Urine Test Positive H Salicylates U Opiates 300ng/mL cut Negative Ur Oxycodone Screen Negative Urine Methadone Screen Negative Acetaminophen Ur Barbiturates Screen Negative U Tricyclic Antidepress Negative Ur Phencyclidine Scrn Negative Ur Amphetamines Screen Negative U Methamphetamines Scrn Negative Ur MDMA Scrn (Ecstasy) Negative U Benzodiazepines Scrn Negative Urine Cocaine Screen Negative U Marijuana (THC) Screen Negative Ethyl Alcohol SARS-CoV-2 (PCR) 05/11/21 05/11/21 05/11/21 03:55 03:55 03:55 WBC 8.8 RBC 4.03 Hgb 13.3 Hct 39.3 MCV 97.4 MCH 33.0 MCHC 33.9 RDW 13.4 Plt Count 260 Neut % (Auto) 68.3 Lymph % (Auto) 23.[address] % (Auto) 7.3 Eos % (Auto) 0.9 L Baso % (Auto) 0.5 Neut # (Auto) 6000 Lymph # (Auto) 2000 [place] # (Auto) 600 Eos # (Auto) 100 Baso # (Auto) 0 Sodium 142 Potassium 3.2 L Chloride 110 H Carbon Dioxide 17 L BUN 7 Creatinine 0.61 Estimated GFR > 60.0 BUN/Creatinine Ratio 11.5 Glucose 106 H Lactate Calcium 9.5 Total Bilirubin 0.4 AST 48 H ALT 26 Alkaline Phosphatase 65 Total Protein 7.8 Albumin 4.7 Globulin 3.1 Albumin/Globulin Ratio 1.5 HCG, Quant 353.5 Urine Color Urine Appearance Urine pH Ur Specific [place] Urine Protein Urine Glucose (UA) Urine Ketones Urine Occult Blood Urine Nitrate Urine Bilirubin Urine Urobilinogen Ur Leukocyte Esterase Urine RBC Urine WBC Urine Bacteria Ur Culture Indicated? Urine Test Salicylates < 1.0 U Opiates 300ng/mL cut Ur Oxycodone Screen Urine Methadone Screen Acetaminophen < 10 L Ur Barbiturates Screen U Tricyclic Antidepress Ur Phencyclidine Scrn Ur Amphetamines Screen U Methamphetamines Scrn Ur MDMA Scrn (Ecstasy) U Benzodiazepines Scrn Urine Cocaine Screen U Marijuana (THC) Screen Ethyl Alcohol 182 H SARS-CoV-2 (PCR) 05/11/21 05/11/21 13:14 13:18 WBC RBC Hgb Hct MCV MCH MCHC RDW Plt Count Neut % (Auto) Lymph % (Auto) [place] % (Auto) Eos % (Auto) Baso % (Auto) Neut # (Auto) Lymph # (Auto) [place] # (Auto) Eos # (Auto) Baso # (Auto) Sodium Potassium Chloride Carbon Dioxide BUN Creatinine Estimated GFR BUN/Creatinine Ratio Glucose Lactate 1.1 Calcium Total Bilirubin AST ALT Alkaline Phosphatase Total Protein Albumin Globulin Albumin/Globulin Ratio HCG, Quant Urine Color Urine Appearance Urine pH Ur Specific [place] Urine Protein Urine Glucose (UA) Urine Ketones Urine Occult Blood Urine Nitrate Urine Bilirubin Urine Urobilinogen Ur Leukocyte Esterase Urine RBC Urine WBC Urine Bacteria Ur Culture Indicated? Urine Test Salicylates U Opiates 300ng/mL cut Ur Oxycodone Screen Urine Methadone Screen Acetaminophen Ur Barbiturates Screen U Tricyclic Antidepress Ur Phencyclidine Scrn Ur Amphetamines Screen U Methamphetamines Scrn Ur MDMA Scrn (Ecstasy) U Benzodiazepines Scrn Urine Cocaine Screen U Marijuana (THC) Screen Ethyl Alcohol SARS-CoV-2 (PCR) Negative Assessment & Plan Assessment and plan (1) Missed with demise before 20 completed weeks of gestation: Status: Acute (2) Fever: Status: Acute Assessment & Plan narrative: With a well-documented loss of viability of at least 4 weeks duration now and associated with maternal fever, strongly recommended urgent evacuation of uterine contents and prophylactic antibiotics to reduce the risk of septic /septic sequelae following evacuation. Patient advised that this is necessary to preserve her well-being, and possibly her future fertility in that a severe pelvic infection could be a cause of subsequent infertility as well as potentially threatening her life should she become septic. In addition possibility of DIC and hemorrhagic sequelae discussed at length. Unfortunately the patient, at the behest of her boyfriend over the phone, declines examination and wishes to depart Against Medical Advice with full understanding of the risks it poses to her both now and in the future. Reluctantly I have executed a consent form to permit her discharge against medical advice. She was advised in the strongest possible terms to seek care elsewhere if she is not willing to seek care here. Time Spent With Patient Time with patient: 15-24 minutes
[2021-05-11] MEDS: GENTAMICIN 300 MG in SODIUM CHLORIDE 0.9% 100 ML 107.5 ML IV (14:02)
--- NOTE | 2021-05-11 14:07 | PC.NURSE ---
Boyfriend is in the room
--- NOTE | 2021-05-11 14:13 | PC.NURSE ---
PARAFFIN PLANT SWEATER OPERATOR in to evaluate. Pt continues to state she wants to leave and declines surgery.
--- NOTE | 2021-05-11 14:19 | PC.NURSE ---
GOLF BALL INSPECTOR reported to provider that patient was no longer suicidal and safe to discontinue sitter. Sitter discontinued.
[2021-05-11 14:30] LABS: Procalcitonin 0.04 ng/mL (<0.5)
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
[2021-05-11 16:04] LABS: Urine N gonorrhoeae NOT DETECTED
[2021-05-11 16:26] LABS: Urine Chlamydia NOT DETECTED
== END 2021-05-11 15:50 | disposition left against medical advice (07) ==
PROVIDERS: Emergency Medicine; Emergency Provider Emergency Medicine
DX: O02.1 Missed abortion (principal); S09.90XA Unspecified injury of head, initial encounter; W22.8XXA Striking against or struck by other objects, initial encounter; R50.9 Fever, unspecified; Z20.822 Contact with and (suspected) exposure to COVID-19
CPT/HCPCS: 36415; 70450; 76801; 76817; 80053; 80305; 80320; 80329; 81001; 81025; 83605; 84145; 84702; 85025; 86900; 86901; 87040; 87491; 87591; 87635; 96365; 96367; 99282; 99284; C9803; G0480; J0290